=== PATIENT | female | born 1950 | race Caucasian/White ===

== ENCOUNTER → 2019-08-05 14:55 | Outpatient (CLI) | payer SELFPAY ==
--- NOTE | 2019-08-05 15:00 | CT_ITS ---
STUDY: CT SCAN HEAD RIGHT REASON FOR EXAM: Female, 69 years old. RT HIP PAIN. Pre-op for SANDOR hip. RADIATION DOSAGE (If Supplied By Facility): CTDIvol = ( 14.15 ) mGy, DLP = ( 854.17 ) mGycm. Individualized dose optimization techniques were used for this CT.? TECHNIQUE: Multiple axial tomographic images were obtained without intravenous contrast menstruation. Coronal and sagittal reconstruction was obtained as well. COMPARISON: None. FINDINGS: There is a marked degree of the degenerative changes of the both hip joints worse on the right side with the bilateral subchondral cysts in the femoral head and acetabulum. There is also evidence of compression of the right femoral head and mild degree of compression of the left femoral head. 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 CT/Extremity Lower without Contra IMPRESSION: Moderate degree of bilateral degenerative changes of the hip joints worse on the right side with subchondral cyst formation/geodes involving the acetabular and femoral components. There is deformity of the femoral heads worse on the right side. Avascular necrosis should be ruled out. Electronically Signed: Jorge A Bingham, at 15:31 EDT , Service support ,
== END ==
PROVIDERS: Referring Provider Specialist; Visit Provider Specialist
DX: M89.8X5 Other specified disorders of bone, thigh (principal)
CPT/HCPCS: 73700

== ENCOUNTER 2019-08-30 05:18 | Observation (INO) | payer SELFPAY ==
--- NOTE | 2019-08-23 12:21 | EKG12_ITS ---
Test Reason : PRE-OP Blood Pressure : / mmHG Vent. Rate : 054 BPM Atrial Rate : 054 BPM P-R Int : 154 ms QRS Dur : 092 ms QT Int : 424 ms P-R-T Axes : 071 054 045 degrees QTc Int : 402 ms Sinus bradycardia Otherwise normal ECG Confirmed by FRANCISCO WHITNEY, ESPINOZA ([id number]), purchasing expeditor ROSA MEDINA ([id number]) on 08/24/2019 9:45:43 AM Referred By: Aki Sage Confirmed By:ESPINOZA SINGH MD
[2019-08-23 13:55] LABS: Absolute Lymphocyte Count 2.09 X10^3/uL (0.83-4.51); Absolute Neutrophil Count 2.4 X10^3/uL (2.0-7.7); Eosinophil# 0.09 X10^3/uL; Eosinophils% 1.8 % (0-5); Hematocrit 36.2 % (37-47); Hemoglobin 11.9 g/dL (12.0-15.0); Lymphocyte # 2.09 X10^3/ul (4.0); Lymphocyte % 42.2 % (19-41); Mean Corp Hgb Conc 32.9 g/dL (32-36); Mean Corpuscular Hgb 29.9 pg (27.0-32.0); Mean Platelet Vol. 8.7 fl (6.2-12.0); Monocyte% 8.1 % (0-10); NRBC Flagged by Analyzer 0 % (0-5); Neutrophil # 2.37 X10^3/uL (2.7-7.7); Neutrophil % 47.9 % (47-70); Platelet Count 217 K/mm3 (150-450); RBC Distribution Width CV 16.6 % (11.6-14.6); RBC Distribution Width SD 55.8 fl (35.1-43.9); Red Blood Count 3.98 M/mm3 (4.2-5.4)
[2019-08-23 14:21] LABS: Anion Gap 4 (5-15); BUN 20 mg/dL (7-18); BUN/Creat Ratio 29.4 RATIO (10-20); Calcium,Total 9.6 mg/dL (8.5-10.1); Chloride 106 mmol/L (98-107); Creatinine, Serum 0.68 mg/dL (0.55-1.02); EST Glomerular Filtration Rate 91 mL/min (>60); Est Glom Filt Rate - Afr Amer 110 mL/min (>60); Glucose 90 mg/dL (74-106); Potassium 3.7 mmol/L (3.5-5.1); Sodium Level 139 mmol/L (136-145)
--- NOTE | 2019-08-23 15:03 | PCM.HP.BLA ---
History and Physical History and Physical [facility] Patient Name: Yasmine Kimbrough : 1950 From: TAIWO SANTOS PA-C DATE OF SURGERY: 08/30/2019 SCHEDULED PROCEDURE: right total hip arthroplasty with biopsy of bone lesion HISTORY OF PRESENT ILLNESS: Preoperative history and physical exam was performed on August 23, 2019. This is a 69-year-old female who has been having ongoing pain in her right hip for over 15 years. She states it has been getting worse over the past 1 year. Pain can reach a size A 10/10. Patient has pain that is aching in the right hip which is increased with walking, stairs. She does have start up pain. Pain is located in the buttock and wraps around to the groin and thigh. Pain does awaken her at night. Patient states the pain has affected her activities of daily living and occasionally uses a wheelchair due to the pain. Patient has been using bilateral canes for ambulation. She has also been treated by a chiropractor. She has had a previous MRI of bilateral hips. There is a lesion in the proximal femoral shaft at the lesser trochanteric region on the right hip. She denies any recent fevers, chills, recent infections. She has medical history pertinent for hypertension. We are obtaining surgical clearance from the primary care physician Dr. Ric Montes De Oca. After failing conservative measures and discussing treatment options with Dr. Aki Sage, the patient does wish to proceed with a right total hip arthroplasty with biopsy of bone lesion. REVIEW OF SYSTEMS: ROS: Const: Denies change in appetite, fever and weight change. CV: Denies chest pain, heart murmur and irregular heartbeat. Resp: Denies cough, pneumonia, shortness of breath, tuberculosis and wheezing. GI: Denies constipation, diarrhea, heartburn, nausea, rectal itching, bloody stools and vomiting. : Denies incontinence. Musculo: Reports trouble walking, but denies leg swelling, pain and weakness. Skin: Denies Raynaud's, history of shingles and tattoo. Neuro: Denies ambulatory dysfunction, dizziness, numbness/tingling and tremor. Psych: Denies anxiety, insomnia and stress. Saul/Lymph: Denies anemia, bleeding/bruising tendency and past transfusion. Reviewed, no changes - 08/23/2019 at 2:48 pm by Taiwo Santos PAST MEDICAL HISTORY: Advance Care Plan: No Advance Directives Effective Date: 07/05/2019 PMH: Medical Problems: High Blood Pressure Accidents: None Surgical Hx: None Anesthesia Complications: None Assistive Devices: None Reviewed, no changes - 08/23/2019 at 2:48 pm by Taiwo Santos SOCIAL HISTORY: SH: Marital: Single.Occupation: Homemaker.Work Status: Housewife.Hand Dominance: Right-handed. Personal Habits: Cigarette Use: Never Smoked Cigarettes.Smokeless Tobacco: Never Used Smokeless Tobacco.E-Cigarette Use: Never used.Alcohol: Denies use.Drug Use: Denies Use.Enjoy Exercising: Never Exercises. Reviewed, no changes - 08/23/2019 at 2:48 pm by Taiwo Santos VITALS: Ht: 61.5 Wt: 150lb Wt k.040 BMI: 27.9 BP: 153/81 Pulse: 57 T: 97.3 T: 36.3C ALLERGIES: No Known Drug Allergy MEDICATIONS: Amlodipine Besylate 5 mg take 1 tablet by mouth once daily, Hydrochlorothiazide 25 mg take 1 tablet by mouth once daily, Losartan Potassium 50 mg take 1 tablet by mouth once daily, Factor 5 daily PRE-OP EXAM: General appearance:NORMAL Other: Eyes: Conjunctivae and lids: NORMAL Pupils: ERR Ears, Nose, Mouth, and Throat: NORMAL Other: Inspection of lips, teeth and gums: NORMAL Other: Neck: Examination of neck: no masses noted. Respiratory: Assessment of respiratory effort: NORMAL Other: Auscultation of lungs: clear to auscultation no wheezes, rhonchi or rales. Cardiovascular: Auscultation of heart: regular rate and rhythm, no murmurs, gallops or rubs. Exam of carotid arteries: NORMAL Other: Gastrointestinal: Exam of abdomen: soft, nontender, nondistended bowel sounds present. PHYSICAL EXAMINATION: Patient walks with an antalgic gait, she requires bilateral canes for ambulatory assistance. Patient has atrophy of the right hip when compared to the left thigh. There is tenderness to palpation over the lateral right hip. She has increased pain with any internal, external or movement of the hip with crepitus. Patient has 3 mm shorter right leg when compared to left. Range of motion: Flexion 70, internal rotation 5, external rotation 15. IMAGING STUDIES: Previous MRI reveals large cysts with osteoarthritis and collapse of the femoral head bilaterally. On the right hip there is enhancing lesion in the area of the lesser trochanter. X-rays were obtained at [facility] on August 23, 2019 including 2 views AP pelvis and AP right hip reveals severe right hip osteoarthritis with femoral head collapse with large cysts in the femoral head and acetabulum, subchondral sclerosis, and osteophyte formation. There is also severe osteoarthritis of the left hip with complete loss of joint space with subchondral sclerosis, bone cyst in the femoral head and acetabulum with osteophyte formation. IMPRESSION: 1. Severe right hip osteoarthritis 2. Right hip bony lesion 3. Severe left hip osteoarthritis 4. Hypertension PLAN: Dr. Aki Sage did discuss and review with the patient all treatment options including surgical versus nonsurgical options. Patient does wish to proceed with the above-stated procedure. Potential risks, benefits, and complications of the procedure were discussed in detail including but not limited to , infection, nerve and blood vessel damage, persistent pain, numbness, tingling, paresthesias, blood clot, pulmonary embolism, and requirement for possible further surgery. The patient expressed full understanding and has no further questions for the doctor. Patient does agree to proceed with the above-stated procedure and has signed the surgery consent form. This dictation was created using voice recognition software. Phonetic and/or grammatical errors may exist. ___ I have re-examined the patient. There are no clinical changes since date of exam. ___ See progress notes for changes. ___ Dictated on admission Date: Time: Signature:
[2019-08-30] VITALS (11 sets, daily range): BP systolic 103–148; BP diastolic 61–95; PULSE 59–78; RESP 16–18; TEMP 35.9–36.8; O2SAT 93–100; BMI 27.7; BMI 29.8; BMI 29.9
--- NOTE | 2019-08-30 | IMM_PTH ---
PATIENT: PHIL MEDINA LOC: MS3 U#:[id number] AGE/SX: 69/F ROOM: MS315 RE08/30/[address]: Dr. Aki Sage MD : 1950 BED: 1 DIS: 08/31/2019 SPEC #: [id number] RECD: 09/02/19 10:54 STATUS: JACQUI REQ #: [id number] GERARDO: 08/30/19 00:[address]: Aki Sage DEPT: IMMUNOHISTOCHEMISTRY RECD BY: Bambi Ramirez ENTERED: 09/02/19 10:56 SP TYPE: IMMUNO OT DR: No Primary Care Phys Tissues: B - Hip, NOS Procedures: CD20 (add) CD45 (add) CD5 (add) CD79A (add) CD3 (initial) PHYSICIAN & INSTITUTION [facility] [id number] SPECIMEN INFORMATION: Tissue Source: B - Calcar reamings right hip Clinical Info: Severe right hip osteoarthritis; right hip bony lesion Specimen Number: [id number] CPT code: 95229, 40400 x4 METHODOLOGY: Deparaffinized sections of prefer/formalin-fixed tissue or PAP/DQ stained slides are incubated with monoclonal/polyclonal antibodies/oligonucleotide probes. Localization is made via biotin free immunoperoxidase method. Appropriate controls are performed and reacted as expected. Results on target cell population are indicated in the following table: RESULTS: ANTIBODY / CLONE RESULT Block B CD3 (PS1) positive CD5 (SP10) positive CD20 (L26) positive CD45 (RP2/18) positive CD79a (11E3) positive These tests were developed and their performance characteristics determined by [facility]. They may not have been cleared or approved by the U.S. Food and Drug Administration. The FDA has determined that such clearance or approval is not necessary. The above immunohistochemical/dualISH markers are ordered and reviewed by the Pathologist. INTERPRETATION: Calcar reamings right hip: A few minute lymphoid aggregates, polytypic in nature, favor benign. ELENITA:fernando 09/05/19
--- NOTE | 2019-08-30 | HIP_PTH ---
PATIENT: PHIL MEDINA LOC: MS3 U#:[id number] AGE/SX: 69/F ROOM: MS315 RE08/30/[address]: Dr. Aki Sage MD : 1950 BED: 1 DIS: 08/31/2019 SPEC #: [id number] RECD: 08/30/19 12:36 STATUS: JACQUI REFroylan #: [id number] GERARDO: 08/30/19 00:[address]: Aki Sage DEPT: SURGICAL PATHOLOGY RECD BY: Tres Caruso ENTERED: 08/30/19 12:36 SP TYPE: TOTAL HIP OTHR DR: No Primary Care Phys Tissues: A - Hip, NOS B - Hip, NOS Procedures: Decalcification bone/plaque Surgery Specimen Level IV HEADER OPERATION: ERAS, total hip anterior with biopsy of lesion PRE-OP DIAGNOSIS: Severe right hip osteoarthritis; right hip bony lesion TISSUE SUBMITTED: A - Femoral head, right hip, B - Calcar reamings right hip MICROSCOPIC DIAGNOSIS A. Right femoral head, total hip replacement/resection: Femoral head with severe degenerative osteoarthritic changes. Fragments of fibroadipose tissue and markedly reactive synovial tissue with granulation tissue reaction. B. Calcar reamings right hip: Pieces of bone reaming with trilineage hematopoiesis and a few minute lymphoid aggregates, favor benign. Negative for malignancy. See comment. SJ:fernando 09/02/19 GROSS DIAGNOSIS B. Immunohistochemistry ([id number]) supports the above diagnosis. Correlation with clinical, radiologic findings and appropriate follow up are necessary. Case has been reviewed in consultation with Dr. Roa who concurs with the above diagnosis. IDC:AM MICROSCOPIC DESCRIPTION Slides are reviewed. GROSS DESCRIPTION A - Received is one container designated femoral head right hip. The specimen consists of a deformed femoral head measuring 6 x 6 x 4.5 cm. A portion of femoral neck measures up to 0.7 cm in diameter. A portion of soft tissue is attached to the femoral head measuring 4 x 2.5 x 2 cm. The articular surface displays prominent osteophyte formation, eburnation and bone erosion. The soft tissue show focal hyperplastic appearance consistent with synovial hyperplasia. [employer] sections are submitted in four cassettes as follows: 1 & 2 - soft tissue, 3 & 4 - femoral head after decalcification. B - Received in fixative is one container labeled with the patient's name and designated calcar reaming bone right hip. The specimen consists of multiple fragments of bone consistent with bone reaming that in aggregate measure 3 x 2.5 x 0.5 cm. The entire specimen is submitted in one cassette after decalcification. / ELENITA:fernando 08/30/19 TC:5 CPT: 79541 x2, 31567 x2
[2019-08-30] MEDS: Gabapentin 600 MG Tablet PO (06:10)
[2019-08-30] MEDS: Acetaminophen 500 MG Tablet 1000 MG PO ×3 (06:10→22:52)
[2019-08-30] MEDS: Lactated Ringers 1,000 ML 999 ML IV (06:11)
[2019-08-30] MEDS: Celecoxib 200 MG Capsule 400 MG PO (06:11)
[2019-08-30 07:15] LABS: Bedside Glucose 74 mg/dL (70-110)
[2019-08-30] MEDS: Cefazolin 2 GM in 0.9% Normal Saline 100 ML IV (07:28)
--- NOTE | 2019-08-30 07:30 | RAD_ITS ---
STUDY: X-RAY - PELVIS AND RIGHT HIP REASON FOR EXAM: Female, 69 years old. TOTAL HIP TECHNIQUE: 1 views of the pelvis and hip. COMPARISON: None. FINDINGS: Intraoperative imaging provided for right total hip preplacement. RAD/Hip 1 view with Pelvis IMPRESSION: Intraoperative imaging provided for right total hip replacement. Electronically Signed: Jorge A Bingham, at 9:40 EDT , Service support ,
[2019-08-30] MEDS: dexAMETHasone 10 MG/ML Vial IV (07:52)
[2019-08-30] MEDS: Lactated Ringers 1,000 ML 125 ML IV ×2 (08:15→11:07)
--- NOTE | 2019-08-30 09:37 | RAD_ITS ---
STUDY: X-RAY - PELVIS AND RIGHT HIP REASON FOR EXAM: Female, 69 years old. POST OP HIP TECHNIQUE: 2 views of the pelvis and hip. COMPARISON: Comparison is made with prior study done earlier today. FINDINGS: The patient is status post right total hip replacement. There is good alignment. Postoperative soft tissue changes. Marked degree of bilateral osteoarthritis and subchondral geodes involving the left hip joint. RAD/Hip Min 2 Views (Portable) IMPRESSION: Status post right total hip replacement. There is good alignment. Postoperative soft tissue changes. Marked degree of osteoarthritis of the left hip joint. Electronically Signed: Jorge A Bingham, at 11:40 EDT , Service support ,
--- NOTE | 2019-08-30 09:39 | PCM.OPRPT ---
Report of Operation Date of Procedure: 08/30/19 Pre-Operative Diagnosis: 1. Right hip primary osteoarthritis with severe cystic collapse. 2. Right proximal femur bony lesion on MRI Post-Operative Diagnosis: 1. Right hip primary osteoarthritis with severe cystic collapse. 2. Right proximal femur bony lesion on MRI Surgery/Procedure Performed:: Right direct anterior total hip replacement. Right proximal femur bone biopsy Description of Surgical Findings:: Stable hip stable hip. Right hip leg was made slightly longer than the left is left also has femoral head cystic collapse and erosion display director: Taiwo Fowler Type of Anesthesia:: Spinal Anesthesiologist: Nikhil Bennett Special Medications: 2 g Ancef, 1 g TXA at incision, 1 g TXA closure, 10 mg Decadron, joint cocktail (5 mg Duramorph, 30 mL of 0.5% Ropivicaine, 1000 units of epinephrine, 30 mg of Toradol) Specimen's removed: Femoral head. Calcar bone biopsy right femur Estimated Blood Loss (mL): 200 Fluids Replaced: 1500 mL crystalloid Description of Procedure: Components used: 1. Annie Liebenthal femoral stem size 2, 37.5 mm 2. Annie trident 2 acetabular shell size 54 mm 3. [place] X3 polyethylene E 4. [place] Biolox delta 36mm, 0mm femoral head Brief history operative indications: 69 yo f who failed conservative measures for their hip osteoarthritis. X-rays were consistent with osteoarthritis including joint space narrowing, osteophyte formation and subchondral cysts. Patient had MRI and there was a suspicious bone mass in the calcar. Patient also had large femoral head and acetabular cyst that had collapse. CT scan was done based on MRI and CT scan they were not concerned for malignant lesion of the bone however we did recommend biopsy at time of surgery. Total hip replacement was discussed with the patient with risks and benefits including but not limited to blood loss, DVTs, PEs, neurovascular damage, dislocation, general risks of anesthesia including loss of life. Patient demonstrated an understanding medical clearance is obtained the patient was consented for surgery. Procedure: On the date of procedure the patient's R hip was marked in the preoperative area. Patient was then taken back to the operating room where anesthesia assumed control of the C-spine and airway and administered anesthetic. Patient was transferred to the operating table and placed in the supine position. The hips were placed at the break of the bed and a sacral bump was placed. The R lower extremity was then prepped out in a sterile fashion using chlorhexidine while the surgeon scrubbed. The PA was vital in the positioning of the patient. Upon reentering the room the R lower extremity was draped in the standard orthopedic fashion and the incision was marked. A timeout was called and everyone agreed upon the side, the site, the procedure be performed, antibody given, and patient's identity. At this time incision was made through skin, subcutaneous tissue, and fat down to fascia. The fascia was then incised and the TFL was retracted laterally. A retractor was placed on the lateral border of the femoral neck. Attention was directed to the inferior portion of the approach and all crossing vessels were identified and appropriately coagulated. A retractor was then placed on the medial portion of the femoral neck. The anterior capsule was then cleared of all soft tissue and then H shaped capsulotomy was made. The retractors were then placed inside the capsule. The femoral neck was identified and a cleanup cut was made. At this time a power corkscrew was used to remove the femoral head. Attention was then turned toward the acetabulum where the soft tissues were appropriately retracted and the acetabulum was sequentially reamed to 54 mm. Based on the lateral bony erosions of the acetabulum the acetabulum was reamed with live x-ray to verify cup position and coverage. We also carefully manually monitored the anterior and posterior columns. A 54 mm cup was then selected and impacted into place. 3 screws were placed with good purchase in the bone. Live x-ray was used to verify final position. once we are happy with this, acetabular liner was impacted into place and locking mechanism was verified. Attention was then turned to the femur. Soft tissue releases on the medial and lateral femoral neck were appropriately done, the leg was externally rotated and lateralized. A Rincon retractor was placed medially and proximally to the greater trochanter this allowed appropriate visualization and exposure of the femoral canal. Rongeour was then used to remove excess lateral bone. A canal finder and entry broach were used to open the proximal canal. Once we verified we were down the femoral canal we subsequently broached up to a size 2, 37.5mm femur. The appropriate neck was placed in the previously selected head was trialed with a 0 mm neck. At this time patient had good stability of the hip was slightly longer on the right which was what we are shooting for based on the collapse of the left femoral head. Once this was done hip was dislocated and trial femoral components were removed. Bone was prepped for cementing. Cement was mixed on the back table in an appropriate fashion. Once the cement was ready the canal was dried and pressurized with cement. The stem was placed in appropriate anteversion and depth. Once this was done and cement had cured we again re-trialed with a +0. Once we are happy with this trial live x-ray was used to get final x-rays. Hip was dislocated. Trial head was removed trunnion was cleaned and final head was impacted into place. Traction was pulled and the hip was reduced with internal rotation. Once it was appropriately reduced and stability was checked. There was minimal shuck, equal leg lengths and appropriate stability with hyperextension and external rotation as well as with 90? flexion and internal rotation. Fluoroscopy was then also used to verify the position of the components and leg lengths using the contralateral side for comparison. The trial components were then dislocated the proximal femur was again exposed and the components were removed from the wound. The final components were verified and opened. The wound was copiously irrigated out with normal saline. The acetabulum was checked for any residual debris. The final components were placed and impacted. Traction and internal rotation were again used to reduce the hip. After adequate reduction the hip remained stable with appropriate leg lengths. The final components were once again checked with live fluoroscopy and were found to be satisfactory. The wound was then copiously irrigated with normal saline once more, and hemostasis was obtained. Closure was then done using #1 Vicryl runner to close the fascia. A 2-0 vicryl interuppted sutures were used to close the subcutaneous skin. A 3-0 Monocryl and Steri-Strips were used for final skin closure. A Silverlon dressing was placed. Patient was awakened by anesthesia and transferred to the [facility]. Patient was then transferred to the PACU for recovery. Postoperative plan: Patient will get 24 hours postop antibiotics. Aspirin for DVT prophylaxis. patient will get in-house physical therapy and will be weight-bear as tolerated. Patient will follow up in office in 2 weeks for a wound check and x-rays. During the course of the procedure the physician nursing assistants teacher played a vital role. His intimate knowledge of my steps in the procedure aided in safe and expedient completion of the procedure. the PA played a vital rolls in positioning particularly in obtaining the appropriate position at the break of the bed and placing the sacral bump. The PA was also vital in the retraction of soft tissues during the exposure and especially the femoral work as this is a vital part of the procedure to prevent neurovascular damage, fractures, cortical breaches and other complications. The PA was also vital and protecting soft tissues during times of bony cuts and reaming. He also played a vital role in closure with my direct supervision. The PA was also important during reduction and dislocation of the joint and trials intraoperatively. Grafts/Implants Used: Annie - Complications No intraoperative complications - Admit VTE Documentation VTE Present on Admission: No VTE Mechan Device Prophylaxis: SCD's, Thigh High ADRIANNA Hose VTE Pharm Prophylaxis ordered?: Yes Essential Procedure Criteria Procedure Essential: Yes Criteria Note: On 07/19/2019 the [place] Department of Health ([facility]) Public Order signed by [facility] Director Nidia Geiger M.D., regarding the Management of Non-Essential Surgeries and Procedures for the purpose of preserving Personal Protective Equipment (PPE) and critical hospital capacity and resources within [place] went into effect as of 07/20/2019 at 5:00PM. According to the [facility] Public Order: This action will remain in full force and effect until the State of Emergency declared by the Governor no longer exists or the Director of the [facility] rescinds or modifies this Order.. This [facility] order stated all non-essential or elective surgeries and procedures that utilize PPE should be delayed unless there is undue risk to the current or future health of a patient. After reviewing the aforementioned [facility] Public Order and the patients clinical case, I have determined that the scheduled procedure meets the criteria to go forward. Risk to Patient if Procedure Delayed: Presence of severe symptoms causing an inability to perform ADL's
[2019-08-30] MEDS: Senna/Docusate Sodium 1 Tablet 2 TABLET PO ×2 (14:07→22:52)
[2019-08-30] MEDS: Famotidine 20 MG Tablet PO (14:08)
[2019-08-30] MEDS: Cefazolin 1 GM/50 ML BAG IV ×2 (14:41→22:52)
[2019-08-30] MEDS: Ensure Surgery 237 ML LIQUID PO (16:16)
[2019-08-30] MEDS: Aspirin 81 MG TAB.CHEW PO (16:18)
[2019-08-30] MEDS: Lactated Ringers 1,000 ML 90 ML IV (22:52)
[2019-08-31 02:45] VITALS: BP 110/57; PULSE 54; RESP 18; TEMP 36.4; O2SAT 98
[2019-08-31 02:50] VITALS: BMI 29.9
[2019-08-31] MEDS: 0.9% Saline Lock 10 ML Syringe IV (05:01)
[2019-08-31] MEDS: Acetaminophen 500 MG Tablet 1000 MG PO ×2 (05:03→13:27)
[2019-08-31 06:33] LABS: Hematocrit 27.9 % (37-47); Hemoglobin 9.4 g/dL (12.0-15.0); Mean Corp Hgb Conc 33.7 g/dL (32-36); Mean Corpuscular Hgb 30.2 pg (27.0-32.0); Mean Corpuscular Volume 89.7 fL (81-99); Mean Platelet Vol. 8.9 fl (6.2-12.0); Platelet Count 181 K/mm3 (150-450); RBC Distribution Width CV 16.4 % (11.6-14.6); RBC Distribution Width SD 54.2 fl (35.1-43.9); Red Blood Count 3.11 M/mm3 (4.2-5.4); White Blood Count 10.3 K/mm3 (4.4-11.0)
[2019-08-31 07:00] LABS: Anion Gap 3 (5-15); BUN 15 mg/dL (7-18); BUN/Creat Ratio 25.8 RATIO (10-20); Calcium,Total 8.8 mg/dL (8.5-10.1); Chloride 104 mmol/L (98-107); Creatinine, Serum 0.58 mg/dL (0.55-1.02); EST Glomerular Filtration Rate 108 mL/min (>60); Est Glom Filt Rate - Afr Amer 131 mL/min (>60); Estimated Creatinine Clearance 40.81 ml/min; Glucose 133 mg/dL (74-106); Potassium 3.2 mmol/L (3.5-5.1); Sodium Level 137 mmol/L (136-145)
[2019-08-31 08:00] VITALS: BP 123/70; PULSE 58; RESP 18; TEMP 36.8; O2SAT 98
[2019-08-31 08:05] VITALS: BMI 29.9
[2019-08-31] MEDS: Ensure Surgery 237 ML LIQUID PO ×2 (08:46→12:30)
[2019-08-31] MEDS: hydroCHLOROthiazide 25 MG Tablet PO (08:46)
[2019-08-31] MEDS: Famotidine 20 MG Tablet PO (08:47)
[2019-08-31] MEDS: amLODIPine 5 MG Tablet PO (08:47)
[2019-08-31] MEDS: Losartan Potassium 50 MG Tablet PO (08:47)
[2019-08-31] MEDS: Senna/Docusate Sodium 1 Tablet 2 TABLET PO (08:47)
[2019-08-31] MEDS: Aspirin 81 MG TAB.CHEW PO (08:47)
--- NOTE | 2019-08-31 08:54 | PCM.PROGNOTE ---
Subjective: The patient was sitting in chair upon examination. Patient denies chest pain, shortness of breath, dizziness, lightheadedness, nausea, vomiting or calf pain. Pain is controlled on medications. No adverse events overnight. The patient states she is doing well overall. She denies any concerns. He states the right hip feels significantly better than the left and she is ready to get the left one done and inquired how soon she could do that. Objective: Vital signs stable. Patient is afebrile. The patient's potassium preoperatively on August 23, 2019 was 3.7. Currently it is 3.2. The patient is asymptomatic. Dr. Sage was contacted and the patient should follow-up with her primary care provider regarding her potassium level. Patient is able to plantar flex and dorsiflex actively. Sensation is intact to light touch to saphenous, sural, superficial and deep peroneal and tibial nerve distributions. Dressing is clean, dry and intact. Negative Homans bilaterally. Negative signs and symptoms of DVT. - Physical Exam Vitals/I&O's: Vital Signs Temp Pulse Resp BP Pulse Ox 97.6 F L 54 L 18 110/57 L 98 08/31/19 02:45 08/31/19 02:45 08/31/19 02:45 08/31/19 02:45 08/31/19 02:45 Oxygen Flow Rate (L/min) 6 Oxygen Delivery Method Room Air Weight: 74.1 kg Body Mass Index (BMI) 29.8 Intake and Output for Last 24 Hours 08/29/19 08/30/19 08/31/19 23:59 23:59 23:59 Intake Total 3910.00 / 4310.00 1262.5 / 1262.5 Output Total 600 / 1400 1200 / 1200 Balance 3310.00 / 2910.00 62.5 / 62.5 General: Alert, Oriented x3, Cooperative, No apparent distress Extremities: Capillary Refill Less than 3 Seconds, No Calf Tenderness Neurological: Sensory exam intact to light touch and pain Psych/Mental Status: Normal Affect, Appropriate Laboratory Results 08/31/19 06:19: WBC 10.3, RBC 3.11 L, Hgb 9.4 L, Hct 27.9 L, MCV 89.7, MCH 30.2, MCHC 33.7, RDW Std Deviation 54.2 H, RDW Coeff of Kelly 16.4 H, Plt Count 181, MPV 8.9 08/31/19 06:19: Sodium 137, Potassium 3.2 L, Chloride 104, Carbon Dioxide 30.0, Anion Gap 3 L, BUN 15, Creatinine 0.58, Estim Creat Clear Calc 40.81, Est GFR (MDRD) Af Amer 131, Est GFR (MDRD) Non-Af 108, BUN/Creatinine Ratio 25.8 H, Glucose 133 H, Calcium 8.8 Current Medications Acetaminophen (Tylenol) 1,000 mg PO Q8 [facility] Last Admin: 08/31/19 05:03 Dose: 1,000 mg Documented by: Amlodipine Besylate (Norvasc) 5 mg PO DAILY [facility] Last Admin: 08/31/19 08:47 Dose: 5 mg Documented by: Aspirin (Aspirin, Baby) 81 mg PO BIDCM [facility] Last Admin: 08/31/19 08:47 Dose: 81 mg Documented by: Enteral Nutritional Formula (Ensure Surgery) 237 ml PO TIDCM [facility] Last Admin: 08/31/19 08:46 Dose: 237 ml Documented by: Famotidine (Pepcid) 20 mg PO DAILY [facility] Last Admin: 08/31/19 08:47 Dose: 20 mg Documented by: Hydrochlorothiazide (Hctz) 25 mg PO DAILY [facility] Last Admin: 08/31/19 08:46 Dose: 25 mg Documented by: Lactated Ringer's () 1,000 mls @ 90 mls/hr IV .Q11H7M [facility] Last Infusion: 08/31/19 05:07 Dose: 0 mls/hr Documented by: Insulin Human Lispro (Humalog Kwikpen (Bkc)) 1 - 6 unit SC Q4H PRN PRN; Protocol PRN Reason: BG>/= 180, SEE PROTOCOL Ketorolac Tromethamine (Toradol (Bkc)) 15 mg IV Q6H PRN PRN PRN Reason: Pain Score 1-5/10 Stop: 09/01/19 09:38 Losartan Potassium (Cozaar) 50 mg PO DAILY [facility] Last Admin: 08/31/19 08:47 Dose: 50 mg Documented by: Meloxicam (Mobic) 7.5 mg PO BID [facility] Morphine Sulfate () 2 - 4 mg IV Q2H PRN PRN PRN Reason: Pain Score 4-10/10 Ondansetron HCl (Zofran) 4 mg IV Q8H PRN PRN PRN Reason: NAUSEA Promethazine HCl (Phenergan) 12.5 mg IM Q6H PRN PRN; Protocol PRN Reason: NAUSEA/VOMITING Senna/Docusate Sodium (Senokot-S, Caitlin-Colace) 2 tablet PO BID [facility] Last Admin: 08/31/19 08:47 Dose: 2 tablet Documented by: Sodium Chloride () 10 - 40 ml IV UD PRN PRN Reason: SALINE FLUSH Last Admin: 08/31/19 05:01 Dose: 10 ml Documented by: Tramadol HCl (Ultram) 50 - 100 mg PO Q6H PRN PRN PRN Reason: Pain Score 4-10/10 Medical Necessity - Tobacco Use Smoking Status: Never smoker Tobacco Use: Non-smoker Assessment/Plan 1. Status post right total hip arthroplasty with biopsy of lesion post operative day #1. 2. Continue pain medications: Tylenol and tramadol. 3. DVT prophylaxis: Aspirin and thigh-high ADRIANNA hose 4. PT/OT: Weightbearing as tolerated 5. H & H: 9.4/27.9, patient is asymptomatic. 6. WBCs: 10.3, patient was given Decadron intraoperatively 7. Encouraged incentive spirometry. 8. Continue postoperative medical management per medicine. 9: Postoperative drainage: Dressing is clean dry and intact. 9. Disposition: Orthopedically stable. The plan is for discharge home today after physical therapy. Patient will follow-up per postop instructions. Prescriptions will be E scribed to the [facility] retail pharmacy. The patient does have in-home physical [facility]
--- NOTE | 2019-08-31 09:15 | DCINST_ITS ---
Discharge Diet: No Restrictions Discharge Activity: May not drive while taking narcotic pain medications. May shower in (days): 1 Weight Bearing Status: Weight bearing as tolerated Elevate: Right Leg Additional Activity Instructions:: Wear elastic stockings for 2 weeks. DO NOT use alcohol with narcotic pain medication. DO NOT make important decisions while taking narcotic medication. If you have problems with taking your medication (rash, itching, nausea, etc.) call the office at once. Call your doctor if your incision/area has: Sudden Increased Bleeding, Increased Pain/ Swelling, Increased Redness, Foul Smelling Discharge Call your doctor if you observe: Fever of 101 or Higher Remove Dressing in (days):: 5 Cleanse incision/area with: Soap & Water Allergies/Adverse Reactions: Allergies No Known Allergies Allergy (Verified 08/30/19 06:02) Medications to take at Discharge Amlodipine Besylate [Norvasc] 5 mg PO DAILY 08/26/19 Hydrochlorothiazide [Hctz] 25 mg PO DAILY 08/26/19 Losartan Potassium [Cozaar] 50 mg PO DAILY 08/26/19 Acetaminophen [Tylenol] 1,000 mg PO Q8 30 Days #100 tab 08/31/19 Aspirin [Aspirin, Baby] 81 mg PO BIDCM #60 tab.chew 08/31/19 Famotidine [Pepcid] 20 mg PO DAILY #30 tab 08/31/19 Meloxicam [Mobic] 7.5 mg PO BID 30 Days #60 tab 08/31/19 Senna/Docusate Sodium [Senokot-S] 2 tab PO BID #10 tab 08/31/19 traMADol [Ultram] 50 - 100 mg PO Q6H PRN PRN 7 Days #56 tablet 08/31/19 The following prescriptions were given: Aspirin [Aspirin, Baby] 81 mg PO BIDCM #60 tab.chew Transmission Status: Pending to [facility] Meloxicam [Mobic] 7.5 mg PO BID 30 Days #60 tab Transmission Status: Pending to [facility] Famotidine [Pepcid] 20 mg PO DAILY #30 tab Transmission Status: Pending to [facility] Senna/Docusate Sodium [Senokot-S] 2 tab PO BID #10 tab Transmission Status: Pending to [facility] Acetaminophen [Tylenol] 1,000 mg PO Q8 30 Days #100 tab Transmission Status: Pending to [facility] traMADol [Ultram] 50 - 100 mg PO Q6H PRN PRN 7 Days #56 tablet PRN Reason: Pain Score 4-10/10 Transmission Status: Sent to [facility] Primary Care Physician: Care Physician,No Primary [Primary Care Provider] - Test Results: Test results from this visit will be discussed in further detail at your follow- up appointment, if applicable. Please Follow Up With: Taiwo Fowler PA-C When: September 12, 2019 at 9:30 am Proposed Discharge Date: 08/31/19
--- NOTE | 2019-08-31 09:50 | CASEMGMT ---
RN CM Face to Face with patient for initial transition planning/care coordination assessment. RN CM introduced self and role at [facility]. Patient sitting in chair, alert and oriented. Patient willing to participate in assessment and is able to answer all questions appropriately. Care providers, pharmacy, and demographics verified. Patient wishes to discharge home and is setup with outpatient therapy in [facility]. Patient states she has no further needs or concerns at this time. CM to follow for discharge planning needs that may arise. PCP: Belle Gomez Specialists: arlene Sage Pharmacy: [facility] Insurance: [employer] Prescription Benefit: none Living Will/HPOA: none LNOK: brother and sister in law Living Arrangements: Patient lives with brother and sister in law in single story home with 1 step to enter the home. Transportation: Driving Service DME/HHC: Patient has crutches, walker, wheelchair. Patient denies previous HHC. Disposition Plan: Patient to discharge with outpatient therapy, family support, and follow-up plans in place. Violeta UMAÑA, RN, CM
[2019-08-31 12:05] VITALS: BMI 29.9
[2019-08-31 13:44] VITALS: BP 118/74; PULSE 58; RESP 16; TEMP 36.8; O2SAT 100
== END 2019-08-31 14:10 | disposition home or self-care (01) ==
LOC: ACINP 10:51 → MS3 10:53
PROVIDERS: Admitting Provider Specialist; Referring Provider Specialist; Visit Provider Specialist
PROC: (CPT 27284; principal; 2019-08-30 07:05)
DX: M16.0 Bilateral primary osteoarthritis of hip (principal); I10 Essential (primary) hypertension; Z79.899 Other long term (current) drug therapy; M89.9 Disorder of bone, unspecified
CPT/HCPCS: 01214; 27130; 36415; 73501; 73502; 76000; 80048; 82962; 85025; 85027; 87081; 88305; 88311; 88341; 88342; 93005; 96361; 96365; 96366; 97110; 97116; 97162; 97166; 97530; 97535; 99218; 99251; C1713; C1776; J7120; A4216; G0378; G0379; G0463; J2405

== ENCOUNTER → 2019-10-21 10:48 | Outpatient (CLI) | payer SELFPAY ==
[2019-08-30 11:48] VITALS: BMI 29.8
[2019-10-21 12:16] LABS: Absolute Lymphocyte Count 1.95 X10^3/uL (0.83-4.51); Absolute Neutrophil Count 2.1 X10^3/uL (2.0-7.7); Basophil# 0.01 X10^3/uL; Basophil% 0.2 % (0-1); Eosinophil# 0.11 X10^3/uL; Eosinophils% 2.5 % (0-5); Hemoglobin 11.5 g/dL (12.0-15.0); Lymphocyte # 1.95 X10^3/ul (4.0); Lymphocyte % 43.6 % (19-41); Mean Corp Hgb Conc 31.1 g/dL (32-36); Mean Corpuscular Hgb 29.6 pg (27.0-32.0); Mean Corpuscular Volume 95.1 fL (81-99); Mean Platelet Vol. 8.7 fl (6.2-12.0); Monocyte# 0.33 X10^3/uL; Monocyte% 7.4 % (0-10); NRBC Flagged by Analyzer 0 % (0-5); Neutrophil # 2.06 X10^3/uL (2.7-7.7); Neutrophil % 46.1 % (47-70); Platelet Count 269 K/mm3 (150-450); RBC Distribution Width CV 15.8 % (11.6-14.6); RBC Distribution Width SD 54.5 fl (35.1-43.9); Red Blood Count 3.89 M/mm3 (4.2-5.4); White Blood Count 4.5 K/mm3 (4.4-11.0)
[2019-10-21 12:38] LABS: Anion Gap 6 (5-15); BUN 21 mg/dL (7-18); BUN/Creat Ratio 28.8 RATIO (10-20); Calcium,Total 9.8 mg/dL (8.5-10.1); Chloride 100 mmol/L (98-107); Creatinine, Serum 0.73 mg/dL (0.55-1.02); EST Glomerular Filtration Rate 84 mL/min (>60); Est Glom Filt Rate - Afr Amer 101 mL/min (>60); Glucose 101 mg/dL (74-106); Potassium 3.9 mmol/L (3.5-5.1); Sodium Level 137 mmol/L (136-145)
== END ==
PROVIDERS: Referring Provider Specialist; Visit Provider Specialist
DX: Z01.818 Encounter for other preprocedural examination (principal)
CPT/HCPCS: 36415; 80048; 85025; 87081

== ENCOUNTER 2019-11-02 07:55 | Observation (INO) | payer SELFPAY ==
[2019-08-30 11:48] VITALS: BMI 29.8
--- NOTE | 2019-10-21 21:46 | PCM.HP.BLA ---
History and Physical History and Physical [facility] Patient Name: Yasmine Kimbrough : 1950 From: MIGUEL ANGEL SANTOS PA-C DATE OF SURGERY: 11/02/2019 SCHEDULED PROCEDURE: left total hip arthroplasty HISTORY OF PRESENT ILLNESS: Preoperative history and physical exam was performed on October 21, 2019. This is a 69-year-old female who has been having ongoing left hip pain for several years. Pain is been aching. Her pain can reach 8/10 with activities. Her pain is increased with stairs and walking. Patient does have start up pain. She has pain that is located in her left groin. Pain does occasionally wake her at night. Patient currently uses a cane. She does have history of a previous right total hip arthroplasty which was performed by Dr. Aki Sage on August 30, 2019. She is doing well with regards to the right hip. Patient states left hip pain is very similar to the right hip prior to surgery. She has tried conservative measures including physical therapy exercises that she learned on the right hip and started doing on the left hip with no relief in symptoms. Patient currently denies any chest pain, shortness of breath, fevers chills, recent infections. She does have a medical history pertinent for hypertension. After failing conservative measures and discussing treatment options with Dr. Aki Sage, the patient does wish to proceed with a left total hip arthroplasty. REVIEW OF SYSTEMS: ROS: Const: Denies change in appetite, fever and weight change. CV: Denies chest pain, heart murmur and irregular heartbeat. Resp: Denies cough, pneumonia, shortness of breath, tuberculosis and wheezing. GI: Denies constipation, diarrhea, heartburn, nausea, rectal itching, bloody stools and vomiting. : Denies incontinence. Musculo: Reports trouble walking, but denies leg swelling, pain and weakness. Skin: Denies Raynaud's, history of shingles and tattoo. Neuro: Denies ambulatory dysfunction, dizziness, numbness/tingling and tremor. Psych: Denies anxiety, insomnia and stress. Saul/Lymph: Denies anemia, bleeding/bruising tendency and past transfusion. Reviewed, no changes. PAST MEDICAL HISTORY: Advance Care Plan: No Advance Directives Effective Date: 07/05/2019 PMH: Medical Problems: High Blood Pressure Accidents: None Surgical Hx: Hip Replacement RT - (08/30/2019) SAW @ [facility] Anesthesia Complications: None Assistive Devices: Cane, Glasses, Wheelchair - around the house to do work Reviewed and updated. SOCIAL HISTORY: SH: Marital: Single.Occupation: Homemaker.Work Status: Housewife.Hand Dominance: Right-handed. Personal Habits: Cigarette Use: Never Smoked Cigarettes.Smokeless Tobacco: Never Used Smokeless Tobacco.E-Cigarette Use: Never used.Alcohol: Denies use.Drug Use: Denies Use.Enjoy Exercising: Exercises 1-3 X/Week. Reviewed and updated. VITALS: Ht: 62 Wt: 150lb Wt k.040 BMI: 27.4 BP: 159/80 Pulse: 58 Resp: 16 T: 97.4 T: 36.3C ALLERGIES: No Known Drug Allergy MEDICATIONS: Amlodipine Besylate 5 mg take 1 tablet by mouth once daily, Hydrochlorothiazide 25 mg take 1 tablet by mouth once daily, Losartan Potassium 50 mg take 1 tablet by mouth once daily, Factor 5 daily PRE-OP EXAM: General appearance:NORMAL Other: Eyes: Conjunctivae and lids: NORMAL Pupils: ERR Ears, Nose, Mouth, and Throat: NORMAL Other: Inspection of lips, teeth and gums: NORMAL Other: Neck: Examination of neck: no masses noted. Respiratory: Assessment of respiratory effort: NORMAL Other: Auscultation of lungs: clear to auscultation no wheezes, rhonchi or rales. Cardiovascular: Auscultation of heart: regular rate and rhythm, no murmurs, gallops or rubs. Exam of carotid arteries: NORMAL Other: Gastrointestinal: Exam of abdomen: soft, nontender, nondistended bowel sounds present. PHYSICAL EXAMINATION: Patient currently walks with an antalgic gait with use of a cane. Right hip incision is well-healed. She is doing well from a previous right total hip arthroplasty. No significant pain on range of motion of the right hip. Left hip was called to touch without erythema or signs of infection. Patient has limited range of motion. Left hip is 4 mm shorter than the right hip. Sensation intact to light touch. IMAGING STUDIES: Left hip x-rays reveal severe arthritis of the left hip with acetabular dysplasia. There are large cyst in the femoral head and acetabulum. There is flattening of the femoral head consistent with cystic collapse. IMPRESSION: 1. 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 Presence of right total hip arthroplasty: August 30, 2019 3. Hypertension PLAN: Dr. Aki Sage did discuss and review with the patient all treatment options including surgical versus nonsurgical options. Patient does wish to proceed with the above-stated procedure. Potential risks, benefits, and complications of the procedure were discussed in detail including but not limited to , infection, nerve and blood vessel damage, persistent pain, numbness, tingling, paresthesias, blood clot, pulmonary embolism, and requirement for possible further surgery. The patient expressed full understanding and has no further questions for the doctor. Patient does agree to proceed with the above-stated procedure and has signed the surgery consent form. We discussed the current risks associated with COVID 19. This does include the risk of exposure while in the hospital. Patient was reassured local hospitals have low infection rates and are taking all necessary precautions to avoid exposure to patients. In addition, we discussed strategies that can be used to help limit exposure including those that limit the patient's time in the hospital. Also using strategies to limit the patient's need for continued inpatient services after being discharged from the hospital. Patient was notified that we will need to comply with any screening or testing the hospital wishes to perform or that surgery may be delayed for any positive results. This dictation was created using voice recognition software. Phonetic and/or grammatical errors may exist. ___ I have re-examined the patient. There are no clinical changes since date of exam. ___ See progress notes for changes. ___ Dictated on admission Date: Time: Signature:
[2019-11-02] VITALS (11 sets, daily range): BP systolic 104–163; BP diastolic 63–77; PULSE 57–74; RESP 14–16; TEMP 36.2–36.8; O2SAT 96–100; BMI 27.0
--- NOTE | 2019-11-02 08:52 | OP.PCM_ITS ---
Report of Operation Date of Procedure: 11/02/19 Pre-Operative Diagnosis: Right hip primary osteoarthritis Post-Operative Diagnosis: Right hip primary osteoarthritis Surgery/Procedure Performed:: Right hip direct anterior minimally invasive robotic assisted total hip replacement Description of Surgical Findings:: Stable hip with equal leg lengths server engineer: An Deleon Type of Anesthesia:: General Anesthesiologist: Horacio Palacios Special Medications: 2 g Ancef, 1 g TXA at incision, 1 g TXA closure, 10 mg Decadron, joint cocktail (5 mg Duramorph, 30 mL of 0.5% Ropivicaine, 1000 units of epinephrine, 30 mg of Toradol) Specimen's removed: Bony cuts Estimated Blood Loss (mL): 150 Fluids Replaced: 1500 mL crystalloid Description of Procedure: Components used: 1. Accolade 2 Sylmar femoral stem size 4 127? 2. Sylmar trident 2 acetabular shell size 50 mm 3. Annie X3 polyethylene D 4. Annie Biolox delta 36mm, -5mm femoral head Brief history operative indications: 69 yo f who failed conservative measures for their hip osteoarthritis. X-rays were consistent with osteoarthritis including joint space narrowing, osteophyte formation and subchondral cysts. Total hip replacement was discussed with the patient with risks and benefits including but not limited to blood loss, DVTs, PEs, neurovascular damage, dislocation, general risks of anesthesia including loss of life. Patient demonstrated an understanding medical clearance is obtained the patient was consented for surgery. Procedure: On the date of procedure the patient's R hip was marked in the preoperative area. Patient was then taken back to the operating room where anesthesia assumed control of the C-spine and airway and administered anesthetic. Patient was transferred to the operating table and placed in the supine position. The hips were placed at the break of the bed and a sacral bump was placed. The R lower extremity was then prepped out in a sterile fashion using chlorhexidine while the surgeon scrubbed. The PA was vital in the positioning of the patient. Upon reentering the room the R lower extremity was draped in the standard orthopedic fashion and the incision was marked. A timeout was called and everyone agreed upon the side, the site, the procedure be performed, antibody given, and patient's identity. At this time incision was made through skin, subcutaneous tissue, and fat down to fascia. The fascia was then incised and the TFL was retracted laterally. A retractor was placed on the lateral border of the femoral neck. Attention was directed to the inferior portion of the approach and all crossing vessels were identified and appropriately coagulated. A retractor was then placed on the medial portion of the femoral neck. The anterior capsule was then cleared of all soft tissue and then H shaped capsulotomy was made. The retractors were then placed inside the capsule. The femoral neck was identified and the femoral checkpoints were registered a cleanup cut was then made. At this time a power corkscrew was used to remove the femoral head. Attention was then turned toward the acetabulum where the soft tissues were appropriately retracted and the acetabulum was registered with the Service[employer]ench robotic system. Then the acetabulum was reamed to 50 mm. A 50 mm cup was then selected and impacted into place. Acetabular liner was impacted into place and locking mechanism was verified. The position of the acetabular cup was then verified under live fluoroscopy. Attention was then turned to the femur. Soft tissue releases on the medial and lateral femoral neck were appropriately done, the leg was externally rotated and lateralized. A Rincon retractor was placed medially and proximally to the greater trochanter this allowed appropriate visualization and exposure of the femoral canal. Rongeour was then used to remove excess lateral bone. A canal finder and entry broach were used to open the proximal canal. Once we verified we were down the femoral canal we subsequently broached up to a size 4 femur. The appropriate neck was placed in the previously selected head was trialed with a -5 mm neck. Traction was pulled and the hip was reduced with internal rotation. Once it was appropriately reduced and stability was checked. There was minimal shuck, equal leg lengths and appropriate stability with hyperextension and external rotation as well as with 90? flexion and internal rotation. Fluoroscopy was then also used to verify the position of the components and leg lengths using the ServiceB[employer] system. Based on the patient's preoperative leg length discrepancies with the operative leg being longer we used stability as well as the contralateral hip to obtain appropriate hip mechanics in length. The trial components were then dislocated the proximal femur was again exposed and the components were removed from the wound. The final components were verified and opened. The wound was copiously irrigated out with normal saline. The acetabulum was checked for any residual debris. The final components were placed and impacted. Traction and internal rotation were again used to reduce the hip. After adequate reduction the hip remained stable with appropriate leg lengths. The final components were once again checked with live fluoroscopy and were found to be satisfactory. The wound was then copiously irrigated with normal saline once more, and hemostasis was obtained. Closure was then done using #1 Vicryl runner to close the fascia. A 2-0 vicryl interuppted sutures were used to close the subcutaneous skin. A 3-0 Monocryl and Steri-Strips were used for final skin closure. A Silverlon dressing was placed. Patient was awakened by anesthesia and transferred to the [facility]. Patient was then transferred to the PACU for recovery. Postoperative plan: Patient will get 24 hours postop antibiotics. Patient will get in-house physical therapy and will be weight-bear as tolerated. Patient will follow up in office in 2 weeks for a wound check and x-rays. - Complications No intraoperative complications - Admit VTE Documentation VTE Present on Admission: No VTE Mechan Device Prophylaxis: SCD's, Thigh High ADRIANNA Hose VTE Pharm Prophylaxis ordered?: Yes
[2019-11-02] MEDS: Gabapentin 600 MG Tablet PO (09:03)
[2019-11-02] MEDS: Acetaminophen 500 MG Tablet 1000 MG PO ×3 (09:03→21:11)
[2019-11-02] MEDS: Lactated Ringers 1,000 ML 999 ML IV ×2 (09:12→12:30)
[2019-11-02 09:21] LABS: Bedside Glucose 91 mg/dL (70-110)
--- NOTE | 2019-11-02 10:30 | RAD_ITS ---
STUDY: X-RAY - PELVIS AND LEFT HIP REASON FOR EXAM: Left hip arthroplasty. TECHNIQUE: 2 intraoperative images of the pelvis and hip. COMPARISON: Radiographs 08/30/2019. FINDINGS: There is a left hip arthroplasty without evidence of complication. Electronically Signed: Chad Ordonez MD at 13:57 EDT Tel , Service support , RAD/Hip 1 view with Pelvis
[2019-11-02] MEDS: Cefazolin 2 GM in 0.9% Normal Saline 100 ML IV (10:40)
--- NOTE | 2019-11-02 11:57 | OP.PCM_ITS ---
Report of Operation Date of Procedure: 11/02/19 Pre-Operative Diagnosis: Left hip primary osteoarthritis Post-Operative Diagnosis: Left hip primary osteoarthritis Surgery/Procedure Performed:: Left minimally invasive direct anterior total hip replacement Description of Surgical Findings:: Stable hip with equal leg lengths service technician: An Deleon Type of Anesthesia:: Spinal Anesthesiologist: Nikhil Bennett Special Medications: 2 g Ancef, 1 g TXA at incision, 1 g TXA closure, 10 mg Decadron, joint cocktail (5 mg Duramorph, 30 mL of 0.5% Ropivicaine, 1000 units of epinephrine, 30 mg of Toradol) Specimen's removed: Bony cuts Estimated Blood Loss (mL): 200 mL Fluids Replaced: 1100 mL crystalloid Description of Procedure: Components used: 1. Thompson Annie femoral stem size 37.5/2 2. Woodland trident 2 acetabular shell size 54 mm 3. Woodland X3 polyethylene E 4. Annie Biolox delta 36mm, -2.5mm femoral head Brief history operative indications: 69 yo F who failed conservative measures for their hip osteoarthritis. X-rays were consistent with osteoarthritis including joint space narrowing, osteophyte formation and subchondral cysts. Total hip replacement was discussed with the patient with risks and benefits including but not limited to blood loss, DVTs, PEs, neurovascular damage, dislocation, general risks of anesthesia including loss of life. Patient demonstrated an understanding medical clearance is obtained the patient was consented for surgery. Procedure: On the date of procedure the patient's L hip was marked in the preoperative area. Patient was then taken back to the operating room where anesthesia assumed control of the C-spine and airway and administered anesthetic. Patient was transferred to the operating table and placed in the supine position. The hips were placed at the break of the bed and a sacral bump was placed. The L lower extremity was then prepped out in a sterile fashion using chlorhexidine while the surgeon scrubbed. The PA was vital in the positioning of the patient. Upon reentering the room the L lower extremity was draped in the standard orthopedic fashion and the incision was marked. A timeout was called and everyone agreed upon the side, the site, the procedure be performed, antibody given, and patient's identity. At this time incision was made through skin, subcutaneous tissue, and fat down to fascia. The fascia was then incised and the TFL was retracted laterally. A retractor was placed on the lateral border of the femoral neck. Attention was directed to the inferior portion of the approach and all crossing vessels were identified and appropriately coagulated. A retractor was then placed on the medial portion of the femoral neck. The anterior capsule was then cleared of all soft tissue and then H shaped capsulotomy was made. The retractors were then placed inside the capsule. The femoral neck was identified and a cleanup cut was made. At this time a power corkscrew was used to remove the femoral head. Attention was then turned toward the acetabulum where the soft tissues were appropriately retracted and the acetabulum was sequentially reamed to 54 mm. A 54 mm cup was then selected and impacted into place. Acetabular liner was i mpacted into place and locking mechanism was verified. The position of the acetabular cup was then verified under live fluoroscopy. Attention was then turned to the femur. Soft tissue releases on the medial and lateral femoral neck were appropriately done, the leg was externally rotated and lateralized. A Rincon retractor was placed medially and proximally to the greater trochanter this allowed appropriate visualization and exposure of the femoral canal. Rongeour was then used to remove excess lateral bone. A canal finder and entry broach were used to open the proximal canal. Once we verified we were down the femoral canal we subsequently broached up to a size 37.5/2 femur. The appropriate neck was placed in the previously selected head was trialed with a -2.5 mm neck. Traction was pulled and the hip was reduced with internal rotation. Once it was appropriately reduced and stability was checked. There was minimal shuck, equal leg lengths and appropriate stability with hyper extension and external rotation as well as with 90? flexion and internal rotation. Fluoroscopy was then also used to verify the position of the components and leg lengths using the contralateral side for comparison. The trial components were then dislocated the proximal femur was again exposed and the components were removed from the wound. The final components were verified and opened. The wound was copiously irrigated out with normal saline and the femoral canal was prepared for bone cement. Bone cement was mixed.. The acetabulum was checked for any residual debris. The final femoral component was cemented into place. After cement cured femoral head was impacted into place on a clean trunnion.. Traction and internal rotation were again used to reduce the hip. After adequate reduction the hip remained stable with appropriate leg lengths. The final components were once again checked with live fluoroscopy and were found to be satisfactory. The wound was then copiously irrigated with normal saline once more, and hemostasis was obtained. Closure was then done using #1 Vicryl runner to close the fascia. A 2-0 vicryl interuppted sutures were used to close the subcutaneous skin. A 3-0 Monocryl and Steri-Strips were used for final skin closure. A Silverlon dressing was placed. Patient was awakened by anesthesia and transferred to [facility]. Patient was then transferred to the PACU for recovery. Postoperative plan: Patient will get 24 hours postop antibiotics. Patient will get in-house physical therapy and will be weight-bear as tolerated. Patient will follow up in office in 2 weeks for a wound check and x-rays. - Complications There was some fragmentation of the greater trochanter with elevation of the femur. Abductor insertion was checked and was intact. - Admit VTE Documentation VTE Present on Admission: No VTE Mechan Device Prophylaxis: SCD's, Thigh High ADRIANNA Hose VTE Pharm Prophylaxis ordered?: Yes
--- NOTE | 2019-11-02 12:59 | EKG12_ITS ---
Test Reason : POSTOP,RHYTHM CHANGE Blood Pressure : / mmHG Vent. Rate : 066 BPM Atrial Rate : 066 BPM P-R Int : 158 ms QRS Dur : 090 ms QT Int : 432 ms P-R-T Axes : 070 063 058 degrees QTc Int : 452 ms Sinus rhythm with Premature atrial complexes Otherwise normal ECG Confirmed by FRANCISCO WHITNEY, ESPINOZA ([id number]), greeting card editor HARPER ARGUETA ([id number]) on 11/09/2019 10:47:18 AM Referred By: Aki Sage Confirmed By:ESPINOZA SINGH MD
--- NOTE | 2019-11-02 13:07 | RAD_ITS ---
STUDY: X-RAY - PELVIS AND LEFT HIP REASON FOR EXAM: Postop left hip arthroplasty. TECHNIQUE: 2 views of the pelvis and hip. COMPARISON: Intraoperative images obtained earlier the same day and radiographs 08/30/2019. FINDINGS: There is postoperative gas in the soft tissues. There is enthesopathy of the bilateral iliac wings. Normal bilateral superior and inferior pubic rami. Normal pubic symphysis. Normal bilateral ischial tuberosities. There is a left hip arthroplasty without evidence of complication. RAD/Hip Min 2 Views (Portable) IMPRESSION: Uncomplicated left hip arthroplasty. Electronically Signed: Chad Ordonez MD at 13:39 EDT Tel , Service support ,
[2019-11-02] MEDS: Lactated Ringers 1,000 ML 125 ML IV (13:45)
[2019-11-02] MEDS: Lactated Ringers 1,000 ML 100 ML IV (14:59)
[2019-11-02] MEDS: hydroCHLOROthiazide 25 MG Tablet PO (15:35)
[2019-11-02] MEDS: Ondansetron 4 MG/2 ML Vial IV (15:35)
[2019-11-02] MEDS: Famotidine 20 MG Tablet PO (15:35)
[2019-11-02] MEDS: Aspirin 81 MG TAB.CHEW PO (15:35)
--- NOTE | 2019-11-02 16:00 | CASEMGMT ---
Addendum entered by Chad Gao 11/03/19 09:14: 0900: PT/OT daisha reviewed. BRENNA CM to room to talk with pt and discussed recommendations. Pt denies wanting any OP therapy at all. She confirms she does not want any HHC and does not want any OP therapy. AMALIA Maravilla, aware. Pt denies having any discharge needs or concerns. She states has a driver manager available to pick her up to take her home @ 1 PM today and is hoping to be able to discharge by then. BRENNA Euceda, aware. Original Note: RN CM AIR EXPORT OPERATIONS AGENT CM to room to meet with patient for initial transition planning/care coordination assessment. BRENNA CM introduced self and role at [facility]. Pt voices understanding and consents to assessment at this time. Pt sitting up in recliner chair in room in no distress at this time. Pt is awake, is a little sleepy, but answers all questions appropriately. Care providers, pharmacy, and demographics verified/updated at this time. PCP: Ric Montes De Oca Specialists: Chu--Ortho Preferred Pharmacy: [facility] Retail Insurance: [employer] Prescription Benefit: none Living Will/HPOA: none LNOK: brother and [id number]. Has 3 sisters also. Living Arrangements: Lives w/bro and sis-in-law (attached home). Single story w/one step to enter. Good family support. Pt states she is independent w/ADL's and states she manages her own medications and appts. Her sis-in-law often goes with her to her appts. Her family does most of the laundry. Transportation: Hires drivers DME: has the following DME: cane, crutches, walker, w/c. States has a shower chair but does not use it. States often sponge bathes. Pt states no need for further DME at this time. HHC/SNF: Denies previous HHC or SNF. Has had OP therapy-- was a one-time visit in [place] after last surgery where they did teaching on home therapy. Pt states she does not want any therapy @ d/c. She does not want HHC or any OP therapy. Pt wishes to return home and states has no concerns with going home at time of discharge. CM to follow for any discharge planning/needs. Pt voices no concerns/needs at this time. Advised pt to ask for CM if any questions/concerns/needs arise. Voices understanding. PLAN: Home PT/OT evals pending. Johnson JONESN RN CM
[2019-11-02] MEDS: Cefazolin 1 GM/50 ML BAG IV (18:25)
[2019-11-02] MEDS: Senna/Docusate Sodium 1 Tablet 2 TABLET PO (21:11)
[2019-11-03 00:14] VITALS: BP 115/75; PULSE 50; RESP 16; TEMP 36.5; O2SAT 98
[2019-11-03 00:25] VITALS: BMI 27.0
[2019-11-03] MEDS: Cefazolin 1 GM/50 ML BAG IV (01:51)
[2019-11-03 04:50] VITALS: BP 110/70; PULSE 57; RESP 16; TEMP 36.4; O2SAT 98
[2019-11-03] MEDS: Acetaminophen 500 MG Tablet 1000 MG PO (05:04)
[2019-11-03 05:10] VITALS: BMI 27.0
[2019-11-03 06:27] LABS: Hematocrit 31.8 % (37-47); Hemoglobin 10.3 g/dL (12.0-15.0); Mean Corp Hgb Conc 32.4 g/dL (32-36); Mean Corpuscular Hgb 29.9 pg (27.0-32.0); Mean Corpuscular Volume 92.2 fL (81-99); Mean Platelet Vol. 8.8 fl (6.2-12.0); Platelet Count 208 K/mm3 (150-450); RBC Distribution Width CV 15.1 % (11.6-14.6); RBC Distribution Width SD 51.5 fl (35.1-43.9); Red Blood Count 3.45 M/mm3 (4.2-5.4); White Blood Count 9.8 K/mm3 (4.4-11.0)
[2019-11-03 06:53] LABS: Anion Gap 7 (5-15); BUN 14 mg/dL (7-18); BUN/Creat Ratio 20.8 RATIO (10-20); Calcium,Total 8.7 mg/dL (8.5-10.1); Chloride 102 mmol/L (98-107); Creatinine, Serum 0.67 mg/dL (0.55-1.02); EST Glomerular Filtration Rate 92 mL/min (>60); Est Glom Filt Rate - Afr Amer 111 mL/min (>60); Estimated Creatinine Clearance 40.81 ml/min; Glucose 119 mg/dL (74-106); Potassium 3.7 mmol/L (3.5-5.1); Sodium Level 138 mmol/L (136-145)
[2019-11-03] MEDS: Aspirin 81 MG TAB.CHEW PO (08:25)
[2019-11-03] MEDS: Ensure Surgery 237 ML LIQUID PO ×2 (08:25→11:48)
--- NOTE | 2019-11-03 09:11 | PN.ORTHO_ITS ---
Subjective: The patient was sitting in bedside chair upon examination. Patient denies any chest pain, shortness of breath, nausea or vomiting, or calf pain. Patient does report having some mild dizziness/lightheadedness. She had this after her previous total joint replacement. She denies any chest pain or shortness of breath. Patient is adamant that she leaves today. Pain is controlled on medications. No adverse overnight events. Patient also declines any postoperative outpatient physical therapy. Objective: Vital signs stable and afebrile. Patient is able to plantarflex and dorsiflex actively. Sensation is intact to light touch to saphenous, sural, superficial and deep peroneal, and tibial distribution. Dressing is clean dry and intact. Negative Homans bilaterally, negative signs and symptoms of DVT. - Physical Exam Vitals/I&O's: Vital Signs Temp Pulse Resp BP Pulse Ox 97.6 F L 57 L 16 110/70 98 11/03/19 04:50 11/03/19 04:50 11/03/19 04:50 11/03/19 04:50 11/03/19 04:50 Oxygen Flow Rate (L/min) 6 Oxygen Delivery Method Room Air Weight: 67 kg Body Mass Index (BMI) 27.0 Intake and Output for Last 24 Hours 11/01/19 11/02/19 11/03/19 23:59 23:59 23:59 Intake Total 4120.00 / 4120.00 139.00 / 139.00 Output Total 700 / 700 Balance 3420.00 / 3420.00 139.00 / 139.00 General: Alert, Oriented x3, Cooperative, No apparent distress Laboratory Results 11/02/19 08:58: POC Glucose 91 11/03/19 06:15: WBC 9.8, RBC 3.45 L, Hgb 10.3 L, Hct 31.8 L, MCV 92.2, MCH 29.9, MCHC 32.4, RDW Std Deviation 51.5 H, RDW Coeff of Kelly 15.1 H, Plt Count 208, MPV 8.8 11/03/19 06:15: Sodium 138, Potassium 3.7, Chloride 102, Carbon Dioxide 29.0, Anion Gap 7, BUN 14, Creatinine 0.67, Estim Creat Clear Calc 40.81, Est GFR (MDRD) Af Amer 111, Est GFR (MDRD) Non-Af 92, BUN/Creatinine Ratio 20.8 H, Glucose 119 H, Calcium 8.7 Current Medications Acetaminophen (Tylenol) 1,000 mg PO Q8 [facility] Last Admin: 11/03/19 05:04 Dose: 1,000 mg Documented by: Amlodipine Besylate (Norvasc) 5 mg PO DAILY [facility] Aspirin (Aspirin, Baby) 81 mg PO BIDCM [facility] Last Admin: 11/03/19 08:25 Dose: 81 mg Documented by: Enteral Nutritional Formula (Ensure Surgery) 237 ml PO TIDCM [facility] Last Admin: 11/03/19 08:25 Dose: 237 ml Documented by: Famotidine (Pepcid) 20 mg PO DAILY [facility] Last Admin: 11/02/19 15:35 Dose: 20 mg Documented by: Hydrochlorothiazide (Hctz) 25 mg PO DAILY [facility] Last Admin: 11/02/19 15:35 Dose: 25 mg Documented by: Sodium Chloride () 250 mls @ 15 mls/hr IV .[id number] PRN PRN Reason: Saline Flush Sodium Chloride () 250 mls @ 15 mls/hr IV .[id number] PRN PRN Reason: Additional IVPB Infusion Insulin Human Lispro (Humalog Kwikpen ([facility])) 1 - 6 unit SC Q4H PRN PRN; Protocol PRN Reason: BG>/= 180, SEE PROTOCOL Ketorolac Tromethamine (Toradol ([facility])) 15 mg IV Q6H PRN PRN PRN Reason: Pain Score 1-5/10 Stop: 11/04/19 07:29 Losartan Potassium (Cozaar) 50 mg PO DAILY [facility] Meloxicam (Mobic) 7.5 mg PO BID [facility] Morphine Sulfate () 2 - 4 mg IV Q2H PRN PRN PRN Reason: Pain Score 4-10/10 Ondansetron HCl (Zofran) 4 mg IV Q8H PRN PRN PRN Reason: NAUSEA Last Admin: 11/02/19 15:35 Dose: 4 mg Documented by: Promethazine HCl (Phenergan) 12.5 mg IM Q6H PRN PRN; Protocol PRN Reason: NAUSEA/VOMITING Senna/Docusate Sodium (Senokot-S, Caitlin-Colace) 2 tablet PO BID [facility] Last Admin: 11/02/19 21:11 Dose: 2 tablet Documented by: Sodium Chloride () 10 - 40 ml IV UD PRN PRN Reason: SALINE FLUSH Tramadol HCl (Ultram) 50 - 100 mg PO Q6H PRN PRN PRN Reason: Pain Score 4-10/10 Medical Necessity - Tobacco Use Smoking Status: Never smoker Assessment/Plan 1. S/P left direct anterior total hip arthroplasty POD #1 2. Continue Pain Medications: Tylenol, tramadol, meloxicam 3. DVT Prophylaxis: Take 81 mg aspirin twice daily for 4 weeks postoperatively for DVT prophylaxis 4. PT/OT: Weightbearing as tolerated 5. H & H: 10.3/31.8, asymptomatic. Secondary to acute blood loss from surgery 6. Encouraged Incentive Spirometry 7. Disposition: Plan will be for discharge home today. Patient is adamant that she leaves today. Overall she is doing very well. Pain is well controlled. Patient is declining any physical therapy postoperatively at home. Physical therapy will set her up on a home exercise plan here at the hospital. Prescriptions will be E scribed to [facility]. She will follow- up per postop instructions. Patient states she still has tramadol at home from her previous right total hip arthroplasty. I have reviewed the [place] Automated Rx Reporting System (OARRS) report for this patient for refill pattern and other prescriber involvement as part of the appropriate surveillance for the provision of acute and chronic controlled medications. The report was requested and reviewed on the date of this entry and was considered in the prescribing process.
--- NOTE | 2019-11-03 09:21 | DCINST_ITS ---
Discharge Diet: No Restrictions Discharge Activity: May Not Drive - while taking narcotic pain medications. May shower in (days): 1 - Dressing must be intact to skin. Turn dressing away from water. Ice area for (Minutes): 20 - Every 1-2 hours while awake Weight Bearing Status: Weight bearing as tolerated Elevate: Operative Extremity Additional Activity Instructions:: Wear elastic stockings for 2 weeks. DO NOT use alcohol with narcotic pain medication. DO NOT make important decisions while taking narcotic medication. If you have problems with taking your medication (rash, itching, nausea, etc.) call the office at once. Call your doctor if your incision/area has: Increased Pain/ Swelling, Increased Redness, Foul Smelling Discharge Call your doctor if you observe: Fever of 101 or Higher Remove Dressing in (days):: 4 - Remove dressing on November 07, 2019 Additional Instructions: Follow orthopedic postop instructions Allergies/Adverse Reactions: Allergies No Known Allergies Allergy (Verified 10/25/19 13:37) Medications to take at Discharge Amlodipine Besylate [Norvasc] 5 mg PO DAILY 08/26/19 Hydrochlorothiazide [Hctz] 25 mg PO DAILY 08/26/19 Losartan Potassium [Cozaar] 50 mg PO DAILY 08/26/19 Acetaminophen [Tylenol] 1,000 mg PO Q8 tablet 11/03/19 Aspirin [Aspirin, Baby] 81 mg PO BIDCM tab.chew 11/03/19 Famotidine [Pepcid] 20 mg PO DAILY #30 tab 11/03/19 Meloxicam [Mobic] 7.5 mg PO BID #30 tab 11/03/19 Senna/Docusate Sodium [Senokot-S] 2 tab PO BID #10 tab 11/03/19 traMADol [Ultram] 50 - 100 mg PO Q6H PRN PRN tablet 11/03/19 The following prescriptions were given: Meloxicam [Mobic] 7.5 mg PO BID #30 tab Transmission Status: Pending to [facility] Famotidine [Pepcid] 20 mg PO DAILY #30 tab Transmission Status: Pending to [facility] Senna/Docusate Sodium [Senokot-S] 2 tab PO BID #10 tab Transmission Status: Pending to [facility] Primary Care Physician: JORDIN OLIVARES [Other] Test Results: Test results from this visit will be discussed in further detail at your follow- up appointment, if applicable. Please Follow Up With: David Fowler PA-C When: 11/16/19 @ 10:30 am
[2019-11-03 09:58] VITALS: BP 106/57; PULSE 60; RESP 18; TEMP 36.6; O2SAT 100
[2019-11-03] MEDS: Senna/Docusate Sodium 1 Tablet 2 TABLET PO (10:03)
[2019-11-03] MEDS: Famotidine 20 MG Tablet PO (10:03)
--- NOTE | 2019-11-03 11:27 | PHA.DC.MC ---
Pharmacy Service has performed discharge medication reconciliation and counseling for this patient. 1. ACETAMINOPHEN 1000MG Q8H 2. TRAMADOL 50-100MG PO Q6H PRN PAIN 3. MELOXICAM 7.5MG PO BID 4. FAMOTIDINE 20MG PO DAILY 5. SENNA/DOCUSATE 2T PO BID UNTIL FIRST BOWEL MOVEMENT, THEN BID PRN CONSTIPATION 6. ASPIRIN 81MG PO BID The patient's discharge medication list was reviewed for discrepancies and discrepancies were resolved. Home Medications Amlodipine Besylate [Norvasc] 5 mg PO DAILY 08/26/19 Hydrochlorothiazide [Hctz] 25 mg PO DAILY 08/26/19 Losartan Potassium [Cozaar] 50 mg PO DAILY 08/26/19 Acetaminophen [Tylenol] 1,000 mg PO Q8 tab 11/03/19 Aspirin [Aspirin, Baby] 81 mg PO BIDCM tab.chew 11/03/19 Famotidine [Pepcid] 20 mg PO DAILY #30 tab 11/03/19 Meloxicam [Mobic] 7.5 mg PO BID #30 tab 11/03/19 Senna/Docusate Sodium [Senokot-S] 2 tab PO BID #10 tab 11/03/19 traMADol [Ultram] 50 - 100 mg PO Q6H PRN PRN tab 11/03/19 The patient was counseled on the following discharge medications and changes in medications for homegoing were reviewed. The Reason for Use, instructions for use, and potential side effects were reviewed for all new medications. The patient's questions regarding all of their medications were answered. The patient was able to verbally demonstrate an understanding of their discharge medications.
== END 2019-11-03 13:08 | disposition home or self-care (01) ==
LOC: SDC 08:57 → MS3 08:57
PROVIDERS: Anesthesiology; Admitting Provider Specialist; Referring Provider Specialist; Visit Provider Specialist
PROC: (CPT 27284; principal; 2019-11-02 10:05)
DX: M16.12 Unilateral primary osteoarthritis, left hip (principal); Z11.59 Encounter for screening for other viral diseases; I10 Essential (primary) hypertension; Z79.899 Other long term (current) drug therapy
CPT/HCPCS: 01214; 27130; 36415; 73501; 73502; 76000; 80048; 82962; 85027; 87635; 93005; 96361; 96365; 96366; 96375; 97110; 97162; 97166; 97530; 97535; 99218; 99251; C1776; G2023; J7120; A4216; G0378; G0379; G0463; J2405; U0003

== ENCOUNTER → 2022-08-22 | Outpatient (CLI) | payer OTHER, SELFPAY | END | disposition home or self-care (01) | LOC: LABSPEC 16:30 | PROVIDERS: Referring Provider Specialist; Visit Provider Specialist | DX: M25.452 Effusion, left hip (principal); Z96.642 Presence of left artificial hip joint | CPT/HCPCS: 87015; 87070; 87075; 87101; 87116; 87186; 87205; 87206 ==

== ENCOUNTER → 2023-12-14 | Outpatient (CLI) | payer SELFPAY ==
[2023-12-14 13:14] LABS: EST Glomerular Filtration Rate 74 mL/min (>60); Est Glom Filt Rate - Afr Amer 89 mL/min (>60)
== END | disposition home or self-care (01) ==
PROVIDERS: Referring Provider Specialist; Visit Provider Specialist
DX: N28.9 Disorder of kidney and ureter, unspecified (principal)
CPT/HCPCS: 36415; 82565